=== PATIENT | male | born 1970 | race Two or more races ===

== ENCOUNTER 2022-06-17 14:23 | Emergency (ER) | payer MEDICAID, MEDICARE ==
[~2022-06-17] VITALS: Ht 170.2 cm; Wt 72.0 kg
[2022-06-17 14:37] VITALS: BP 160/11
[2022-06-17 15:05] LABS: Basophils # (auto) 0 10 ^3/uL (0-0.2); Basophils % (auto) 0.1 % (0.0-2.0); Eosinophils # (auto) 0 10 ^3/uL (0-0.8); Hematocrit 46.2 % (41.0-53.0); Hemoglobin 15.5 g/dL (13.5-17.5); Lymphocytes # (auto) 0.5 10 ^3/uL (0.4-5.4); Mean Corpuscular Hemoglobin 29.5 pg (28.0-32.0); Mean Corpuscular Hgb Conc. 33.6 g/dL (32.0-36.0); Mean Corpuscular Volume 87.6 fL (80.0-100.0); Monocytes # (auto) 1.2 10 ^3/uL (0-1.3); Monocytes % (auto) 7.2 % (0.0-12.0); Neutrophils # (auto) 15.2 10 ^3/uL (1.6-8.6); Neutrophils % (auto) 89.7 % (37.0-80.0); Red Blood Cells 5.28 10^6/uL (4.5-5.90); White Blood Cell 16.9 10^3/uL (4.4-10.8)
[2022-06-17 15:16] LABS: Urine Bacteria MANY /hpf (None Seen); Urine Blood 3+ /uL (Negative); Urine Hyaline Cast FEW /lpf (0 - 2); Urine Mucus FEW (None Seen); Urine Specific Gravity 1.025 (1.001-1.035); Urine Sperm PRESENT /hpf (None Seen); Urine WBC 3 /hpf (0 - 3)
[2022-06-17 15:30] LABS: Albumin 3.9 g/dL (3.4-5.0); Potassium 3.7 mmol/L (3.5-5.1); Salicylate < 1.7 mg/dL (2.8-20.0)
[2022-06-17 15:31] LABS: Amphetamine Screen, Urine NEGATIVE (NEGATIVE); Barbiturate Scree,Urine NEGATIVE (NEGATIVE); Benzodiazephine Screen, Urine NEGATIVE (NEGATIVE); Cannabinoid Screen, Urine NEGATIVE (NEGATIVE); Opiate Scree,Urine NEGATIVE (NEGATIVE); Phencyclidine Screen, Urine NEGATIVE (NEGATIVE)
[2022-06-17 15:31] LABS: Acetaminophen < 2.0 ug/mL (10-30)
[2022-06-17 15:33] LABS: Bilirubin, Total 0.7 mg/dL (0.2-1.0); Total Protein 7.6 g/dL (6.4-8.2)
[2022-06-17 16:13] LABS: Cocaine Screen, Urine POSITIVE (NEGATIVE)
== END 2022-06-17 18:09 | disposition left against medical advice (07) ==
LOC: ER 14:23 → EDBD 14:23 → ER 18:09
DX: F10.129 Alcohol abuse with intoxication, unspecified (principal); R07.89 Other chest pain; Z53.21 Procedure and treatment not carried out due to patient leaving prior to being seen by health care provider
CPT/HCPCS: 36415; 80053; 80307; 80329; 81001; 85025; 93005

== ENCOUNTER 2023-09-03 15:19 | Emergency (ER) | payer MEDICAID, MEDICARE ==
[~2023-09-03] VITALS: Ht 172.7 cm; Wt 81.8 kg
[2023-09-03] MEDS ORDERED: IBUP-1455 PO (19:52)
[2023-09-03] MEDS ORDERED: ACE3T PO (19:52)
[2023-09-03 20:20] VITALS: BP 130/80; PULSE 60; RESP 18; O2SAT 99
== END 2023-09-03 20:23 | disposition home or self-care (01) ==
LOC: ER 15:19 → EDBD 15:19 → ER 20:23
DX: S16.1XXA Strain of muscle, fascia and tendon at neck level, initial encounter (principal); S00.83XA Contusion of other part of head, initial encounter; V43.62XA Car passenger injured in collision with other type car in traffic accident, initial encounter; Y93.89 Activity, other specified; Y92.410 Unspecified street and highway as the place of occurrence of the external cause; Y99.8 Other external cause status
CPT/HCPCS: 70450; 70486; 72125